=== PATIENT | male | born 1935 | race Caucasian/White ===

== ENCOUNTER 2018-05-07 15:23 | Observation (INO) ==
[2018-05-07] MEDS ORDERED: 0.9 % SODIUM CHLORIDE 1,000 ML IV ONE (15:47)
--- NOTE | 2018-05-07 15:50 | Emergency Department Note ---
General Adult HPI - General Chief complaint: Cold/Flu Symptoms Stated complaint: cough x 2 weeks Time Seen by Provider: 05/07/18 15:31 Source: patient Mode of arrival: ambulatory Limitations: no limitations - History of Present Illness HPI Narrative: 83-year-old male presents from the [facility] due to cough 2 weeks. He feels like it may be associated to allergies. Shortness of breath. He is tachycardic. He denies any chest pain or shortness of breath. He denies any lung history. He denies any cardiac history. He does have chronic kidney disease. He denies being diabetic. He has tried some [id number] medications that have not helped. He has pain in his back when he coughs. He states that he has coughing spells that come and go. He has not been sneezing much. - Related Data Home Medications Medication Instructions Recorded Confirmed brimonidine 0.2 % eye drops 1 drp OPHTHALMIC BID ml 05/29/17 05/07/18 latanoprost 0.005 % eye drops 1 drp OPHTHALMIC QDAY 05/29/17 05/07/18 pravastatin 10 mg tablet 10 mg PO QDAY tab 05/29/17 05/07/18 terazosin 5 mg tablet 5 mg PO QHS 05/29/17 05/07/18 timolol 0.25 % eye drops 1 drp OPHTHALMIC BID 05/29/17 05/07/18 Lisinopril/Hctz 10/12.5MG 1 tab PO DAILY 05/07/18 05/07/18 [Zestoretic 10/12.5MG] Allergies Allergy/AdvReac Type Severity Reaction Status Date / Time No Known Drug Allergies Allergy Verified 04/07/18 09:01 Review of Systems All systems ED: reviewed and negative except as stated. Past Medical History - Past Medical History Medical history: Reports: hypertension, renal disease Psychiatric history: Reports: no psych history Surgical history ED: Reports: non-contributory Family history: Reports: non-contributory - Social History smoking status: Former smoker Physical Exam Limitations: no limitations General appearance: alert, in no apparent distress Head: atraumatic Eye: Present: normal appearance. Absent: conjunctival injection Neck: Present: normal inspection, full ROM Chest: Present: normal inspection, symmetric chest wall rise Respiratory: Present: other (mild crackles in bases) Cardiovascular: Present: tachycardia, normal heart sounds Abdominal: Present: soft, normal bowel sounds. Absent: tenderness Extremities: Absent: pedal edema Neurological: Present: alert, oriented X3 Psychiatric: Present: normal affect, normal mood Skin: Present: warm, dry, intact Course Course Narrative: Patient will be admitted for pneumonia Vital Signs Temperature 98.0 F 05/07/18 15:24 Pulse Rate 113 H 05/07/18 15:24 Respiratory Rate 16 05/07/18 15:24 Blood Pressure 119/66 05/07/18 15:24 Pulse Oximetry (%) 97 05/07/18 15:24 Temperature 98.0 F 05/07/18 15:24 Pulse Rate 106 H 05/07/18 18:15 Respiratory Rate 18 05/07/18 18:15 Blood Pressure 117/50 05/07/18 18:15 Pulse Oximetry (%) 95 05/07/18 18:15 Medical Decision Making - Lab Data Lab results reviewed: Yes I reviewed the patient's lab results. Result diagrams: 05/07/18 16:11 05/07/18 16:11 Lab Results 05/07/18 05/07/18 05/07/18 Range/Units 16:11 16:11 16:11 WBC 15.7 H (4.5-11.0) K/mcL RBC 3.53 L (4.50-5.90) M/mcL Hgb 10.0 L (13.5-16.5) g/dL Hct 30.5 L (41.0-55.0) % MCV 86.5 (80.0-100.0) fL MCH 28.3 (26.0-34.0) pg MCHC 32.7 (31.0-36.0) g/dL RDW 19.0 H (11.5-14.5) % Plt Count 144 (140-440) K/mcL MPV 10.4 (7.4-10.4) fL Gran % 78.2 H (38.0-78.0) % Lymph % (Auto) 15.0 L (15.5-49.0) % [place] % (Auto) 6.2 (1.0-12.0) % Eos % (Auto) 0.3 (0.0-7.0) % Baso % (Auto) 0.3 (0.0-2.0) % Gran # 12.3 H (1.8-8.0) K/mcL Lymph # (Auto) 2.4 (1.5-4.8) K/mcL [place] # (Auto) 1.0 H (0.1-0.9) K/mcL Eos # (Auto) 0 (0.0-0.7) K/mcL Baso # (Auto) 0 (0.0-0.3) K/mcL Differential Comment (()) VBG Lactic Acid 1.7 (0.5-2.2) mmol/L Sodium 137 (133-145) mmol/L Potassium 4.6 (3.3-5.1) mmol/L Chloride 97 (96-108) mmol/L Carbon Dioxide 20 L (22-30) mmol/L Anion Gap 20.0 H (8-16) BUN 45 H (8-23) mg/dl Creatinine 2.2 H (0.7-1.2) mg/dl GFR Calculation 27 Glucose 103 (70-105) mg/dL Calcium 8.7 (8.6-10.4) mg/dl Total Bilirubin 1.0 (0.0-1.0) mg/dL AST 30 (0-37) U/l ALT 18 (0-40) U/l Alkaline Phosphatase 345 H (39-117) U/L Troponin T (0-0.03) ng/ml NT-Pro-B Natriuret Pep 99720.0 H (0-450) pg/ml Total Protein 7.4 (5.9-8.4) gm/dL Albumin 4.0 (3.2-5.2) gm/dL Globulin 3.4 (2.2-3.7) gm/dL Albumin/Globulin Ratio 1.2 (1.0-2.3) Procalcitonin (<0.10) ng/mL 05/07/18 05/07/18 Range/Units 16:11 16:46 WBC (4.5-11.0) K/mcL RBC (4.50-5.90) M/mcL Hgb (13.5-16.5) g/dL Hct (41.0-55.0) % MCV (80.0-100.0) fL MCH (26.0-34.0) pg MCHC (31.0-36.0) g/dL RDW (11.5-14.5) % Plt Count (140-440) K/mcL MPV (7.4-10.4) fL Gran % (38.0-78.0) % Lymph % (Auto) (15.5-49.0) % [place] % (Auto) (1.0-12.0) % Eos % (Auto) (0.0-7.0) % Baso % (Auto) (0.0-2.0) % Gran # (1.8-8.0) K/mcL Lymph # (Auto) (1.5-4.8) K/mcL [place] # (Auto) (0.1-0.9) K/mcL Eos # (Auto) (0.0-0.7) K/mcL Baso # (Auto) (0.0-0.3) K/mcL Differential Comment (()) VBG Lactic Acid (0.5-2.2) mmol/L Sodium (133-145) mmol/L Potassium (3.3-5.1) mmol/L Chloride (96-108) mmol/L Carbon Dioxide (22-30) mmol/L Anion Gap (8-16) BUN (8-23) mg/dl Creatinine (0.7-1.2) mg/dl GFR Calculation Glucose (70-105) mg/dL Calcium (8.6-10.4) mg/dl Total Bilirubin (0.0-1.0) mg/dL AST (0-37) U/l ALT (0-40) U/l Alkaline Phosphatase (39-117) U/L Troponin T 0.09 H* (0-0.03) ng/ml NT-Pro-B Natriuret Pep (0-450) pg/ml Total Protein (5.9-8.4) gm/dL Albumin (3.2-5.2) gm/dL Globulin (2.2-3.7) gm/dL Albumin/Globulin Ratio (1.0-2.3) Procalcitonin 0.34 (<0.10) ng/mL - Radiology Data Radiology results reviewed: Yes I reviewed the patient's radiology results. 1. Moderate CHF 2. Possible superimposed infiltrate peripheral right mid and lower lung. Suggest repeat two view upright chest x-ray, following diuretic trial, to assess infiltrate - EKG Data EKG #1 EKG attestation: Yes I reviewed and interpreted this EKG. EKG results narrative: sinus tachycardia, no ischemic changes Disposition Pt seen by SEAMER OPERATOR/PA only: No Clinical Impression: Pneumonia, CHF (congestive heart failure), Sepsis Disposition: Xfer As Inpt ([facility]) Condition: Fair Referrals: Ben Rain Jr, MD [Primary Care Provider] -
--- NOTE | 2018-05-07 16:22 | XRay Report ---
CLINICAL INFORMATION: Cough COMPARISON: None. FINDINGS: The heart is mildly enlarged. Mediastinum is unremarkable. Pulmonary vessels are mildly distended and there is mild interstitial edema throughout both lungs laterally COPD noted. There is mild vague airspace disease in the peripheral right mid and lower lung which may represent atypically distributed edema versus superimposed infiltrate. Small bilateral pleural effusions noted IMPRESSION: 1. Moderate CHF 2. Possible superimposed infiltrate peripheral right mid and lower lung. Suggest repeat two view upright chest x-ray, following diuretic trial, to assess infiltrate Interpreted and Authenticated by: Salvador Aly 05/07/18
[2018-05-07] MEDS ORDERED: FUROSEMIDE 40 MG/4 ML VIAL IV ONE (16:24)
[2018-05-07 17:06] LABS: ALT/SGPT 18 U/l (0-40); Albumin/Globulin Ratio 1.2 (1.0-2.3); Alkaline Phosphatase 345 U/L (39-117); Blood Urea Nitrogen 45 mg/dl (8-23)
[2018-05-07 17:11] LABS: Basophils # (Auto) 0 K/mcL (0.0-0.3); Basophils % (Auto) 0.3 % (0.0-2.0); Eosinophils # (Auto) 0 K/mcL (0.0-0.7); Eosinophils % (Auto) 0.3 % (0.0-7.0); Granulocytes % (Auto) 78.2 % (38.0-78.0); Lymphocytes # (Auto) 2.4 K/mcL (1.5-4.8); Mean Cell Volume 86.5 fL (80.0-100.0); Mean Corpuscular HGB Conc 32.7 g/dL (31.0-36.0); Mean Corpuscular Hemoglobin 28.3 pg (26.0-34.0); Monocytes % (Auto) 6.2 % (1.0-12.0); Platelet Count 144 K/mcL (140-440); RBC 3.53 M/mcL (4.50-5.90)
[2018-05-07] MEDS ORDERED: cefTRIAXone 1 GM VIAL IV ONE (17:20)
[2018-05-07] MEDS ORDERED: LACTATED RINGERS 1,000 ML IV SCH (18:00)
[2018-05-07] MEDS ORDERED: AZITHROMYCIN 500 MG in DEXTROSE 5% IN WATER 250 ML IV SCH (19:45)
--- NOTE | 2018-05-07 19:47 | Internal Med History&Physical ---
Medical - H&P: [facility] Patient information: Note initiated : 05/07/18 at 7:43 pm Service Date, if different from initiated Date: [] Patient: Akira Srivastava a 83 y/o M admitted on for cough x 2 weeks. Chief Complaint: cough x 2 weeks Chief complaint: cough x 2 weeks History of present illness: Mr. Srivastava is a 83 year old M quit smoking 30 years ago. Generally no SOB, cough but last 2 weeks dry non productive cough not much different supine. Pt went to [facility] where his lung exam revealed crackles and he has recently been on HCTZ for leg edema but it resolved after 3 doses so he stopped it. The pt was sent to [facility] for possible CHF and the radiologist read xray as CHF so pt given furosemide by EMD PA. The pt had tachycardia and elevated wbc but no jvd or leg edema. Pt referred to me for combination possible CHF and pneumonia but now receiving IVF. He denies medication allergies and tells me he wants DNR status. Pt denies fevers or chills. No chest pain. He denies myalgias. - Constitutional Constitutional: Present: weight loss. Absent: chills, excessive sweating, frequent falls, lethargy, night sweats - EENT Eyes: Present: other (no complaints) - Cardiovascular Cardiovascular: Absent: chest pain, chest pain with activity, claudication, diaphoresis, dyspnea, edema (he did have prior to hctz), irregular heart rhythm , rapid heart rate, syncope - Respiratory Respiratory: Present: cough. Absent: hemoptysis, wheezing, excessive phlegm production, pain with cough - Gastrointestinal Gastrointestinal: Absent: change in bowel habits, constipation, hematemesis, hematochezia - Genitourinary Genitourinary: Absent: urinary frequency, urinary incontinence - Musculoskeletal Musculoskeletal: Absent: arthralgias, muscle cramps, myalgias - Integumentary Integumentary: Absent: erythema, non-healing lesions, pruritus, rash - Neurological Neurological: Absent: focal weakness, lack of coordination, syncope, weakness - Psychiatric Psychiatric: Absent: other (no complaints) - Hematologic/Lymphatic Hematologic/Lymphatic: Present: other (recently transfused for anemia and negative colonoscopy. Cause unknown possibly renal failure?) Medical - H&P: PMH Medical history: HTN leg edema Bladder Cancer no residual tumor Anemia glaucoma hyperlipidemia Surgical history: TURBT Social history: DNR Drinks 2 oz etoh whiskey and water nightly Cognitive capacity: normal Functional capacity: independent ambulation Smoking status: Former smoker Have you smoked in the last 12 months: No Drug use: none Alcohol use: other (2 oz daily) Medical - H&P: Meds Home Medications Medication Instructions Recorded Confirmed Type brimonidine 0.2 % eye drops 1 drp OPHTHALMIC BID ml 05/29/17 05/07/18 History latanoprost 0.005 % eye drops 1 drp OPHTHALMIC QDAY 05/29/17 05/07/18 History pravastatin 10 mg tablet 10 mg PO QDAY tab 05/29/17 05/07/18 History terazosin 5 mg tablet 5 mg PO QHS 05/29/17 05/07/18 History timolol 0.25 % eye drops 1 drp OPHTHALMIC BID 05/29/17 05/07/18 History Lisinopril/Hctz 10/12.5MG 1 tab PO DAILY 05/07/18 05/07/18 History [Zestoretic 10/12.5MG] Allergies Allergy/AdvReac Type Severity Reaction Status Date / Time No Known Drug Allergies Allergy Verified 04/07/18 09:01 Medical - H&P: Exam - Constitutional Vitals: Temp Pulse Resp BP Pulse Ox 98.0 F 106 H 18 117/50 95 05/07/18 15:24 05/07/18 18:15 05/07/18 18:15 05/07/18 18:15 05/07/18 18:15 General appearance: average body habitus, cooperative, no acute distress - Head Head exam: Present: atraumatic, normocephalic - Eye Eye exam: Present: PERRL - Neck Neck exam: Present: normal inspection. Absent: tenderness - Expanded Neck Exam Neck exam: Absent: tenderness - Respiratory Respiratory exam: Present: rales (bibasilar but cleared to scant at base after coughing on command). Absent: decreased breath sounds, prolonged expiratory phase, respiratory distress - Cardiovascular Cardiovascular exam: Present: normal rate and rhythm. Absent: JVD - GI/Abdominal GI/Abdominal exam: Present: normal bowel sounds, soft. Absent: distended - Expanded GI/Abdominal Exam GI/Abdominal exam: Absent: ascites - Extremities Exam Extremities exam: Present: normal inspection, pedal edema (trace left pretibial) . Absent: César's sign - Expanded Upper Extremities Exam Vascular: Present: radial pulse - Neurological Exam Neurological exam: Present: alert, oriented X3 - Expanded Neurological Exam Speech: Present: fluid speech - Psychiatric Psychiatric exam: Present: normal affect, normal mood - Skin Skin exam: Present: dry (mild tenting, decreased turgor), warm Medical - H&P: Reslt - Labs CBC & Chem 7: 05/07/18 16:11 05/07/18 16:11 Labs: Short CBC 05/07/18 Range/Units 16:11 WBC 15.7 H (4.5-11.0) K/mcL Hgb 10.0 L (13.5-16.5) g/dL Hct 30.5 L (41.0-55.0) % Plt Count 144 (140-440) K/mcL BMP 05/07/18 16:11 Sodium 137 Potassium 4.6 Chloride 97 Carbon Dioxide 20 L BUN 45 H Creatinine 2.2 H Glucose 103 Calcium 8.7 Cardiac Enzymes 05/07/18 Range/Units 16:46 Troponin T 0.09 H* (0-0.03) ng/ml Liver Function 05/07/18 Range/Units 16:11 Total Bilirubin 1.0 (0.0-1.0) mg/dL AST 30 (0-37) U/l ALT 18 (0-40) U/l Alkaline Phosphatase 345 H (39-117) U/L Albumin 4.0 (3.2-5.2) gm/dL - EKG Data EKG shows normal: sinus rhythm, axis Rate: normal - EKG Data Prior EKG available for review: no - Imaging and Cardiology Chest x-ray Status: image reviewed by me (bilateral diffuse infiltrate. cardiomegaly) Medical - H&P: A/P (1) Pneumonia Current visit: Yes Status: Acute admit to observation due to elevated wbc and renal failure. hydrate gently and recheck am labs. blood culture has been done. Add azithromycin. Avoiding levaquin due to renal failure. The patient will start guaifenesin and incentive spirometry. Activity as tolerated and if improving then home on oral meds tomorrow. (2) Bladder cancer Current visit: No Status: Chronic stable but has had a hx of anemia requiring transfusion. Follow with primary and will add iron studies to lab. (3) CRF (chronic renal failure) Current visit: No Status: Chronic stable. also has cardiomegaly but the elevated BNP is not consistent with his exam. Cont IVF. recheck am lab. - Narrative A/P Narrative: 70 mins spent in evaluation and coordination of care for this patient today. [facility] reviewed and case discussed with Savannah MAXWELL
[2018-05-07] MEDS: LACTATED RINGERS 1,000 ML IV SCH (20:23)
[2018-05-07] MEDS: guaiFENesin 600 MG TAB.SR.12H PO SCH (20:25)
[2018-05-07] MEDS: TERAZOSIN 5 MG CAPSULE PO SCH ×2 (20:45→21:54)
[2018-05-07] MEDS ORDERED: TERAZOSIN 5 MG PO SCH (21:00)
[2018-05-07] MEDS ORDERED: guaiFENesin 600 MG TAB.SR.12H PO SCH (21:00)
[2018-05-07] MEDS ORDERED: TIMOLOL OPHTHALMIC SCH (21:00)
[2018-05-07] MEDS ORDERED: SIMVASTATIN 10 MG TABLET PO SCH (21:00)
[2018-05-07] MEDS ORDERED: BRIMONIDINE TARTRATE OPHTHALMIC SCH (21:00)
[2018-05-07] MEDS: AZITHROMYCIN 500 MG in DEXTROSE 5% IN WATER 250 ML IV SCH (21:12)
[2018-05-07] MEDS: TIMOLOL 0.25% OU SCH (21:17)
[2018-05-07] MEDS: 0.9 % SODIUM CHLORIDE 10 ML SYRINGE IV SCH (21:17)
[2018-05-07] MEDS: EYE OU SCH (21:17)
[2018-05-07] MEDS: BRIMONIDINE TARTRATE OU SCH (21:17)
[2018-05-07] MEDS ORDERED: 0.9 % SODIUM CHLORIDE 10 ML SYRINGE IV SCH (22:00)
[2018-05-08] MEDS: LACTATED RINGERS 1,000 ML IV SCH ×4 (04:19→12:13)
[2018-05-08] MEDS: 0.9 % SODIUM CHLORIDE 10 ML SYRINGE IV SCH (04:54)
[2018-05-08] MEDS: BRIMONIDINE TARTRATE OU SCH (07:26)
[2018-05-08 07:37] LABS: Blood Urea Nitrogen 43 mg/dl (8-23)
[2018-05-08] MEDS: EYE OU SCH ×4 (08:23→08:53)
[2018-05-08] MEDS: TIMOLOL 0.25% OU SCH ×2 (08:23→08:53)
[2018-05-08] MEDS: LATANOPROST 0.005% OU SCH ×2 (08:23→08:53)
[2018-05-08 08:24] LABS: Basophils # (Auto) 0 K/mcL (0.0-0.3); Basophils % (Auto) 0.3 % (0.0-2.0); Eosinophils # (Auto) 0.1 K/mcL (0.0-0.7); Eosinophils % (Auto) 0.5 % (0.0-7.0); Granulocytes % (Auto) 76.9 % (38.0-78.0); Lymphocytes # (Auto) 2.1 K/mcL (1.5-4.8); Lymphocytes % (Auto) 16.2 % (15.5-49.0); Mean Cell Volume 86.7 fL (80.0-100.0); Mean Corpuscular HGB Conc 32.7 g/dL (31.0-36.0); Mean Corpuscular Hemoglobin 28.3 pg (26.0-34.0); Monocytes # (Auto) 0.8 K/mcL (0.1-0.9); Monocytes % (Auto) 6.1 % (1.0-12.0); RBC 3.05 M/mcL (4.50-5.90); Red Cell Distribution Width 19.1 % (11.5-14.5)
[2018-05-08] MEDS: guaiFENesin 600 MG TAB.SR.12H PO SCH (08:24)
[2018-05-08] MEDS: AZITHROMYCIN 500 MG in DEXTROSE 5% IN WATER 250 ML IV SCH (08:59)
[2018-05-08] MEDS ORDERED: PRAVASTATIN SODIUM 10 MG PO SCH (09:00)
[2018-05-08] MEDS ORDERED: LATANOPROST OPHTHALMIC SCH (09:00)
--- NOTE | 2018-05-08 11:23 | Discharge Summary ---
Medical - DS: Prov Patient information: Note initiated : 05/08/18 at 11:21 am Service Date, if different from initiated Date: [] Patient: Akira Srivastava a 83 y/o M admitted on 05/07/18 for cough x 2 weeks. Chief Complaint: cough x 2 weeks. non productive Date of admission: 05/07/18 19:51 Discharge date: 05/08/18 Primary care physician: Ben Rain Jr, MD Admitting clinician: Wilfrid Londono Attending physician on admission: Wilfrid Londono Consults: 05/07/18 17:47 Consult to Physician [CONS] Stat Comment: Consulting Provider: Wilfrid Londono Reason For Exam: Physician to Consult Attending physician on discharge: Wilfrid Londono Medical - DS: Meds - Discharge Medications Prescriptions: Azithromycin [Zithromax] 250 mg PO DAILY #4 tab Cefuroxime [Ceftin] 250 mg PO BID #14 tab guaiFENesin [Mucinex] 600 mg PO BID #10 tab.sr.12h Active and Home Medications: Home Medications brimonidine 0.2 % eye drops 1 drp OPHTHALMIC BID ml 05/29/17 [History Confirmed 05/07/18 Last Taken 06/10/17] latanoprost 0.005 % eye drops 1 drp OPHTHALMIC QDAY 05/29/17 [History Confirmed 05/07/18 Last Taken 06/10/17] pravastatin 10 mg tablet 10 mg PO QDAY tab 05/29/17 [History Confirmed Last Taken 06/10/17] terazosin 5 mg tablet 5 mg PO QHS 05/29/17 [History Confirmed 05/07/18 Last Taken 06/10/17] timolol 0.25 % eye drops 1 drp OPHTHALMIC BID 05/29/17 [History Confirmed Last Taken 06/10/17] Lisinopril/Hctz 10/12.5MG [Zestoretic 10/12.5MG] 1 tab PO DAILY 05/07/18 [ History Confirmed 05/07/18 Last Taken Unknown] Medical - DS: Hosp Hospital course: Mr. Srivastava is a 83 year old M Discharge diagnosis: atypical pneumonia Secondary discharge diagnosis: chronic kidney disease stage 3 Reason for admission: atypical pneumonia Pertinent studies/significant findings: cxr with bilateral infiltrates - Time Spent with Patient Total time spent providing and/or coordinating discharge services: Greater than 30 minutes Medical - DS: Exam - Constitutional Vitals: Vital Signs Temp Pulse Pulse Resp BP BP Pulse Ox 05/08/18 08:00 99.4 F H 105 H 18 122/58 92 05/08/18 05:50 98.0 F 05/08/18 04:00 100.0 F H 95 H 20 99/58 95 05/08/18 00:00 99.0 F H 18 130/65 96 05/07/18 20:00 99.3 F H 20 122/79 96 05/07/18 18:15 106 H 18 117/50 95 05/07/18 17:46 105 H 19 110/64 95 05/07/18 15:52 22 05/07/18 15:24 98.0 F 113 H 16 119/66 97 Intake and Output 05/07/18 05/08/18 05/08/18 21:59 05:59 13:59 Intake Total 550 / 550 1250 / 1250 Output Total 410 / 410 775 / 775 175 / 175 Balance 140 / 140 475 / 475 -175 / -175 Intake: IV 550 / 550 1250 / 1250 Sodium Chloride 0.9% 1,000 ml @ 100 / 100 Wide Open IV [facility] Rx#: [id number] Zithromax 500 mg In Dextrose 5% 250 / 250 in Water 250 ml @ 250 mls/hr IV Q24H [facility] Rx#:[id number] Lactated Ringers 1,000 ml @ 250 450 / 450 1000 / 1000 mls/hr IV .Q4H [facility] Rx#: [id number] Output: Void Amount 410 / 410 775 / 775 175 / 175 Other: # Voids 2 Weight 163 lb - Respiratory Respiratory exam: Present: normal respiratory exam. Absent: rales, respiratory distress, rhonchi, wheezes - Cardiovascular Cardiovascular exam: Present: normal rate and rhythm - Extremities Exam Extremities exam: Absent: pedal edema - Neurological Exam Neurological exam: Present: alert, oriented X3 - Psychiatric Psychiatric exam: Present: normal affect, normal mood Medical - DS: Data Labs on day of discharge: Labs from last 24 hours 05/08/18 05/08/18 05/07/18 04:32 04:32 16:46 WBC 12.9 H RBC 3.05 L Hgb 8.6 L Hct 26.4 L MCV 86.7 MCH 28.3 MCHC 32.7 RDW 19.1 H Plt Count TNP MPV TNP Gran % 76.9 Lymph % (Auto) 16.2 [place] % (Auto) 6.1 Eos % (Auto) 0.5 Baso % (Auto) 0.3 Gran # 9.9 H Lymph # (Auto) 2.1 [place] # (Auto) 0.8 Eos # (Auto) 0.1 Baso # (Auto) 0 Differential Comment VBG Lactic Acid Sodium 137 Potassium 4.3 Chloride 99 Carbon Dioxide 22 Anion Gap 16.0 BUN 43 H Creatinine 2.2 H GFR Calculation 27 Glucose 90 Calcium 8.4 L Total Bilirubin AST ALT Alkaline Phosphatase Troponin T 0.09 H* NT-Pro-B Natriuret Pep Total Protein Albumin Globulin Albumin/Globulin Ratio Procalcitonin 05/07/18 05/07/18 05/07/18 16:11 16:11 16:11 WBC RBC Hgb Hct MCV MCH MCHC RDW Plt Count MPV Gran % Lymph % (Auto) [place] % (Auto) Eos % (Auto) Baso % (Auto) Gran # Lymph # (Auto) [place] # (Auto) Eos # (Auto) Baso # (Auto) Differential Comment VBG Lactic Acid 1.7 Sodium 137 Potassium 4.6 Chloride 97 Carbon Dioxide 20 L Anion Gap 20.0 H BUN 45 H Creatinine 2.2 H GFR Calculation 27 Glucose 103 Calcium 8.7 Total Bilirubin 1.0 AST 30 ALT 18 Alkaline Phosphatase 345 H Troponin T NT-Pro-B Natriuret Pep 78666.0 H Total Protein 7.4 Albumin 4.0 Globulin 3.4 Albumin/Globulin Ratio 1.2 Procalcitonin 0.34 05/07/18 16:11 WBC 15.7 H RBC 3.53 L Hgb 10.0 L Hct 30.5 L MCV 86.5 MCH 28.3 MCHC 32.7 RDW 19.0 H Plt Count 144 MPV 10.4 Gran % 78.2 H Lymph % (Auto) 15.0 L [place] % (Auto) 6.2 Eos % (Auto) 0.3 Baso % (Auto) 0.3 Gran # 12.3 H Lymph # (Auto) 2.4 [place] # (Auto) 1.0 H Eos # (Auto) 0 Baso # (Auto) 0 Differential Comment VBG Lactic Acid Sodium Potassium Chloride Carbon Dioxide Anion Gap BUN Creatinine GFR Calculation Glucose Calcium Total Bilirubin AST ALT Alkaline Phosphatase Troponin T NT-Pro-B Natriuret Pep Total Protein Albumin Globulin Albumin/Globulin Ratio Procalcitonin Medical - DS: A/P - Patient/Caregiver Discharge Instructions Activity: increase activity as tolerated Diet: Low Sodium (2gm) - Problem Maintenance (1) Pneumonia Status: Acute Comment: bilateral atypical. finish course of ceftin and azithro and follow up with PCP Qualifiers: Pneumonia type: due to unspecified organism Laterality: bilateral Lung location: lower lobe of lung Qualified Code(s): J18.1 - Lobar pneumonia, unspecified organism (2) Bladder cancer Status: Chronic Comment: unchanged in remission (3) CRF (chronic renal failure) Status: Chronic Comment: due to hypotension and dehydration and cough lisinopril/hctz held. Restart or change to be determined by PCP Qualifiers: Chronic kidney disease stage: stage 3 (moderate) Qualified Code(s): N18.3 - Chronic kidney disease, stage 3 (moderate) - Follow up Plan Follow up with: Ben Rain Jr, MD [Primary Care Provider] - Disposition: Home, Self-Care Prognosis: Good Rehab Potential: Good Overall status at discharge: patient is progressing back to baseline Medical - DS: Qual - VTE Deep Vein Thrombosis/Pulmonary Embolism Present on Admission: No
== END 2018-05-08 12:30 | disposition home or self-care (01) ==
LOC: ICU 15:23 → ED 15:23 → ICU 19:45
PROVIDERS: ADMIT Internal Medicine; ATTEND Internal Medicine